=== PATIENT | male | born 1955 | race Caucasian/White ===

== ENCOUNTER → 2019-12-08 | Outpatient (CLI) | payer OTHER | LOC: COL.RAD 09:24 | DX: M48.061 Spinal stenosis, lumbar region without neurogenic claudication (principal); M47.816 Spondylosis without myelopathy or radiculopathy, lumbar region; M71.38 Other bursal cyst, other site ==

== ENCOUNTER → 2019-12-28 | Outpatient (CLI) | payer OTHER | LOC: MHCPAIN 14:21 | DX: M53.3 Sacrococcygeal disorders, not elsewhere classified (principal); M47.27 Other spondylosis with radiculopathy, lumbosacral region; G89.29 Other chronic pain | CPT/HCPCS: G0463 ==